=== PATIENT | female | born 1985 | race American Indian/Alaskan Native ===

== ENCOUNTER 2018-02-20 08:31 | Emergency (ER) | payer SELFPAY ==
[2018-02-20 09:28] LABS: Bilirubin,Urine NEG (Negative); Blood,Urine NEG (Negative); Color,Urine Yellow (Yellow); Mucus,Urine 3+ /HPF
[2018-02-20 09:38] LABS: HCG Qualitative,Urine Negative (Negative)
[2018-02-20 09:44] LABS: Alanine Aminotransferase 8 units/L (7-56); Albumin 3.6 g/dL (3.9-5); BUN/Creatinine Ratio 16; Blood Urea Nitrogen 8 mg/dL (7-17); Hemolysis Index 6
[2018-02-20 10:19] LABS: Basophils % (Auto) 0.3 % (0.0-1.8); Eosinophils # (Auto) 0.1 K/mm3 (0.0-0.4); Eosinophils % (Auto) 0.6 % (0.0-4.3); Hematocrit 37.8 % (30.3-42.9); Hemoglobin 12.3 gm/dl (10.1-14.3); Lymphocytes # (Auto) 1.6 K/mm3 (1.2-5.4); Lymphocytes % (Auto) 13.7 % (13.4-35.0); Mean Corpuscular HGB Conc 33 % (30-34); Mean Corpuscular Hemoglobin 27 pg (28-32); Mean Corpuscular Volume 81 fl (79-97); Monocytes % (Auto) 8.9 % (0.0-7.3); Platelet Count 331 K/mm3 (140-440); Red Blood Count 4.64 M/mm3 (3.65-5.03)
--- NOTE | 2018-02-20 11:35 | Emergency Department Report ---
ED Abdominal Pain HPI - General Chief Complaint: Abdominal Pain Stated Complaint: STOMACH AND BACK PAIN Time Seen by Provider: 02/20/18 11:18 Source: patient Mode of arrival: Ambulatory Limitations: No Limitations - History of Present Illness Initial Comments: Patient is a 32-year-old female that presents to emergency room with complaints of lower abdominal pain, bilateral flank pain and lower back pain times a few months. Patient states the pain is 10 out of 10. Patient states the pain is worse with movement. And better with rest. Patient states she's had a 30 pound weight loss over the past few months without trying. Patient denies fever. Patient denies dysuria. Patient denies chest pain shortness of breath. Patient denies chills. Patient states she was seen 1 time in urgent care approximately a month ago was diagnosed with having gas. Patient does not take any medications daily. Patient has not taken anything except for ibuprofen on occasion for this pain. MD Complaint: abdominal pain, flank pain -: Sudden Location: LLQ, RLQ, suprapubic, bilateral flank Radiation: none Migration to: no migration Severity: severe Severity scale (0 -10): 10 Quality: stabbing, aching Improves With: rest Worsens With: movement Associated Symptoms: denies other symptoms, anorexia. denies: nausea, vomiting , diarrhea, fever, chills, constipation, dysuria, hematemesis, hematochezia, melena, hematuria, syncope Treatments Prior to Arrival: NSAIDs - Related Data Allergies Allergy/AdvReac Type Severity Reaction Status Date / Time No Known Allergies Allergy Unverified 02/20/18 08:59 ED Review of Systems ROS: Stated complaint: STOMACH AND BACK PAIN Other details as noted in HPI Comment: All other systems reviewed and negative Constitutional: denies: chills, fever Eyes: denies: eye pain, eye discharge, vision change ENT: denies: ear pain, throat pain Respiratory: denies: cough, shortness of breath, wheezing Cardiovascular: denies: chest pain, palpitations Endocrine: no symptoms reported Gastrointestinal: as per HPI, abdominal pain. denies: nausea, diarrhea Genitourinary: denies: urgency, dysuria, discharge Musculoskeletal: denies: back pain, joint swelling, arthralgia Skin: denies: rash, lesions Neurological: denies: headache, weakness, paresthesias Psychiatric: denies: anxiety, depression Hematological/Lymphatic: denies: easy bleeding, easy bruising ED Past Medical Hx - Past Medical History Previous Medical History?: No - Surgical History Past Surgical History?: No - Family History Family history: no significant - Social History Smoking Status: Never Smoker Substance Use Type: None ED Physical Exam - General Limitations: No Limitations General appearance: alert, in no apparent distress - Head Head exam: Present: atraumatic, normocephalic - Eye Eye exam: Present: normal appearance - ENT ENT exam: Present: mucous membranes moist - Neck Neck exam: Present: normal inspection - Respiratory Respiratory exam: Present: normal lung sounds bilaterally. Absent: respiratory distress - Cardiovascular Cardiovascular Exam: Present: regular rate, normal rhythm. Absent: systolic murmur, diastolic murmur, rubs, gallop - GI/Abdominal GI/Abdominal exam: Present: soft, tenderness (bilateral lower quadrant and suprapubic tenderness noted), normal bowel sounds - Extremities Exam Extremities exam: Present: normal inspection - Back Exam Back exam: Present: normal inspection - Neurological Exam Neurological exam: Present: alert, oriented X3 - Psychiatric Psychiatric exam: Present: normal affect, normal mood - Skin Skin exam: Present: warm, dry, intact, normal color. Absent: rash ED Course Vital Signs 02/20/18 02/20/18 02/20/18 08:54 11:30 11:46 Temperature 98.9 F 98.9 F Pulse Rate 100 H 73 Respiratory 16 20 20 Rate Blood Pressure 110/70 Blood Pressure 106/65 [Left] O2 Sat by Pulse 99 100 100 Oximetry - Reevaluation(s) Reevaluation #1: Discussed all results with patient. Patient agreeable with plan of care. Will admit patient to hospitalist service. 02/20/18 12:55 Reevaluation #2: Hospitalist consulted for admission. 02/20/18 12:59 ED Medical Decision Making - Lab Data Result diagrams: 02/20/18 09:07 02/20/18 09:07 - Radiology Data Radiology results: report reviewed CT positive for diverticulitis, colitis and inflamed Rectum - Medical Decision Making Patient is a 32-year-old female presents with unintentional weight loss of 30 pounds and abdominal pain [address] was positive for colitis and diverticulitis as well as an inflamed rectum. Will admit patient to the hospital for further evaluation and treatment. Patient agrees with plan of care - Differential Diagnosis UC. Abdominal pain. Diverticulitis. Colitis. UTI. Critical care attestation.: If time is entered above; I have spent that time in minutes in the direct care of this critically ill patient, excluding procedure time. ED Disposition Clinical Impression: Diverticulitis, Colitis, Weight loss, abnormal, Weight loss, non-intentional, Urinary tract infection Disposition: OP ADMIT IP TO THIS HOSP Is pt being admited?: Yes Does the pt Need Aspirin: No Condition: Serious Referrals: PRIMARY CARE, [Primary Care Provider] - 3-5 Days Time of Disposition: 13:00
[2018-02-20] MEDS ORDERED: DILAUDID IV ONE (11:55)
--- NOTE | 2018-02-20 12:21 | Cat Scan Report ---
CT ABDOMEN PELVIS WITHOUT CONTRAST: HISTORY: abdominal pain. COMPARISON: none. TECHNIQUE: Helical CT in 1.25mm intervals without IV contrast. Sagittal and coronal reconstructions. FINDINGS: Lung bases: Normal. Liver: Normal. Biliary system: Normal. Pancreas: Normal. Spleen: Normal. Kidneys/ureters/bladder: Normal. Adrenal glands: Normal. Aorta: Normal. Intestines: No IV or oral contrast was administered which limits full evaluation of the bowel loops. The sigmoid colon and superior rectum appear inflamed with circumferential thickening. There may be scattered diverticula in this area. It is unclear if this represents a focal colitis or sigmoid diverticulitis. Appendix: Normal. Pelvic viscera: Normal. Ascites: None Adenopathy: None. Musculoskeletal: Normal. IMPRESSION: Findings suggestive of diverticulitis or colitis in the sigmoid region, correlate with the patient's clinical presentation.
[2018-02-20] MEDS ORDERED: ZOSYN/NS 3.375GM/50ML 3.375 GM/50 ML BAG IV ONE (13:01)
[2018-02-20] MEDS ORDERED: NACL 0.9% 1000 ML 1,000 ML IV ONE (13:02)
--- NOTE | 2018-02-20 14:54 | History and Physical Report ---
History of Present Illness Chief complaint: My stomach hurts History of present illness: 32 YO Female with NO PMH presents to ED for evaluation of abdominal pain. Pt seen and evaluated in ED and found to have nonspecific colitis consistent with IBD. Pt treated with IVF resuscitation, IV antibiotics, and IV steroid therapy. Pt states that she has experienced 30 lbs with loss over the past 5 months secondary to decreased oral intake. Pt treated with supportive care with improvement in symptoms. Pt medically optimized and back to usual state of health. Pt discharged home and instructed to f/u pcp 1wk, and GI within 5 days for further care, and endoscopic evaluation. Past History Past Medical History: No medical history, other (reviewed) Past Surgical History: No surgical history, Other (reviewed) Social history: , lives with family. denies: smoking, alcohol abuse, prescription drug abuse Family history: hypertension Medications and Allergies Allergies Allergy/AdvReac Type Severity Reaction Status Date / Time No Known Allergies Allergy Unverified 02/20/18 08:59 Home Medications Medication Instructions Recorded Confirmed Last Taken Type Ciprofloxacin HCl [Ciprofloxacin 500 mg PO Q12H #20 tab 02/20/18 Unknown Rx TAB] Fluconazole [Diflucan TAB] 150 mg PO ONCE #2 tablet 02/20/18 Unknown Rx Prednisone [predniSONE 10 mg 10 mg PO .TAPER #1 tab.ds.pk 02/20/18 Unknown Rx (6-Day Pack, 21 Tabs)] metroNIDAZOLE [Flagyl] 500 mg PO Q8HR #21 tablet 02/20/18 Unknown Rx oxyCODONE /ACETAMINOPHEN [Percocet 1 tab PO Q6HR PRN #20 tablet 02/20/18 Unknown Rx 5/325] Active Meds: Active Medications Sodium Chloride (Nacl 0.9% 1000 Ml) 1,000 mls @ 250 mls/hr IV ONCE ONE Stop: 02/20/18 17:01 Last Admin: 02/20/18 14:06 Dose: 250 mls/hr Review of Systems Constitutional: weight loss, no weight gain, no fever, no chills, no sweats, no night sweats, no fatigue, no weakness Ears, nose, mouth and throat: no ear pain, no ear discharge, no tinnitis, no decreased hearing, no nose pain, no nasal congestion, no nasal discharge Breasts: no change in shape, no swelling, no mass Cardiovascular: no chest pain, no orthopnea, no palpitations, no rapid/ irregular heart beat, no edema, no syncope Respiratory: no cough, no cough with sputum, no excessive sputum, no hemoptysis , no shortness of breath, no dyspnea on exertion Gastrointestinal: abdominal pain, loss of appetite, no nausea, no vomiting, no diarrhea, no constipation, no coffee ground emesis, no BRBPR, no melena, no hematochezia, no early satiety, no jaundice Genitourinary Female: no pelvic pain, no flank pain, no menorrhagia, no dysuria , no urinary frequency, no urgency Rectal: no pain, no incontinence, no bleeding Musculoskeletal: no neck stiffness, no neck pain, no shooting arm pain, no arm numbness/tingling, no low back pain Integumentary: no rash, no pruritis, no redness, no sores, no wounds, no jaundice, no boils Neurological: no head injury, no transient paralysis, no paralysis, no weakness , no parathesias, no numbness, no tingling, no seizures, no syncope Psychiatric: no anxiety, no memory loss, no change in sleep habits, no sleep disturbances, no insomnia, no hypersomnia, no change in appetite, no change in libido, no suicidal ideation Endocrine: no cold intolerance, no heat intolerance, no polyphagia, no excessive thirst, no polydipsia, no polyuria, no nocturia Hematologic/Lymphatic: no easy bruising, no easy bleeding, no lymphadenopathy, no lymphedema Allergic/Immunologic: no urticaria, no allergic rhinitis, no wheezing, no persistent infections, no anaphylaxis, no angioedema Exam - Constitutional Vitals: Temp Pulse Resp BP Pulse Ox 98.9 F 73 20 106/65 100 02/20/18 11:30 02/20/18 11:30 02/20/18 11:46 02/20/18 11:30 02/20/18 11:46 General appearance: Present: no acute distress - EENT Eyes: Present: PERRL ENT: hearing intact, clear oral mucosa - Neck Neck: Present: supple, normal ROM - Respiratory Respiratory effort: normal Respiratory: bilateral: CTA - Cardiovascular Heart Sounds: Present: S1 & S2. Absent: rub, click - Extremities Extremities: pulses symmetrical, No edema Peripheral Pulses: within normal limits - Abdominal General gastrointestinal: Present: soft, non-tender, non-distended, normal bowel sounds Female genitourinary: Present: normal - Integumentary Integumentary: Present: clear, warm, dry - Musculoskeletal Musculoskeletal: gait normal, strength equal bilaterally - Psychiatric Psychiatric: appropriate mood/affect, intact judgment & insight - Neurologic Neurologic: CNII-XII intact, moves all extremities Results - Labs CBC & Chem 7: 02/20/18 09:07 02/20/18 09:07 Labs: Abnormal lab results 02/20/18 02/20/18 02/20/18 Range/Units 09:07 09:07 09:15 WBC 11.7 H (4.5-11.0) K/mm3 MCH 27 L (28-32) pg [place] % (Auto) 8.9 H (0.0-7.3) % [place] # 1.0 H (0.0-0.8) K/mm3 Seg Neutrophils % 76.5 H (40.0-70.0) % Seg Neutrophils # 8.9 H (1.8-7.7) K/mm3 Chloride 97.9 L (98-107) mmol/L Creatinine 0.5 L (0.7-1.2) mg/dL Glucose 119 H (65-100) mg/dL Lactic Acid (0.7-2.0) mmol/L Albumin 3.6 L (3.9-5) g/dL Urine WBC (Auto) 29.0 H (0.0-6.0) /HPF 02/20/18 Range/Units 13:13 WBC (4.5-11.0) K/mm3 MCH (28-32) pg [place] % (Auto) (0.0-7.3) % [place] # (0.0-0.8) K/mm3 Seg Neutrophils % (40.0-70.0) % Seg Neutrophils # (1.8-7.7) K/mm3 Chloride (98-107) mmol/L Creatinine (0.7-1.2) mg/dL Glucose (65-100) mg/dL Lactic Acid 0.60 L (0.7-2.0) mmol/L Albumin (3.9-5) g/dL Urine WBC (Auto) (0.0-6.0) /HPF Assessment and Plan - Patient Problems (1) UTI (urinary tract infection) Status: Acute Qualifiers: Urinary tract infection type: acute cystitis Hematuria presence: without hematuria Qualified Code(s): N30.00 - Acute cystitis without hematuria Plan to address problem: Antibiotic therapy, outpatient F/U with PCP (2) Colitis Status: Acute Plan to address problem: Antibiotic therapy, steroid taper, f/u PCP, as well as GI for outpatient endoscopy.
[2018-02-20 20:45] VITALS: BP 94/56
== END 2018-02-20 20:48 | disposition admitted as inpatient to this hospital (09) ==
LOC: ED 08:31
DX: K57.92 Diverticulitis of intestine, part unspecified, without perforation or abscess without bleeding (principal); K52.9 Noninfective gastroenteritis and colitis, unspecified; R63.4 Abnormal weight loss; N39.0 Urinary tract infection, site not specified
CPT/HCPCS: 36415; 74176; 80053; 81001; 81025; 82140; 85025; 96365; 96375; 99285; J1170; J2543; J2930; J7030